=== PATIENT | male | born 1935 | race Caucasian/White ===

== ENCOUNTER 2016-04-26 09:08 | Emergency (ER) | payer MEDICARE, MEDICAID ==
[~2016-04-26 09:08] MED LIST: ARICEPT10 MG PO; ASPIRIN E.C. 8181 MG PO; DIOVAN80 MG PO; MULTIPLE VITAMI1 CAP PO; NAMENDA 10MG TA10 MG PO; OMEPRAZOLE20 MG PO; PROPRANOLOL10 MG PO; SIMVASTATIN10 MG PO
[2016-04-26 09:10] VITALS: TEMP 98.4
[2016-04-26] MEDS ORDERED: COZAAR 50MG50 MG/TAB PO (09:36)
[2016-04-26] MEDS ORDERED: PEPCID 20MG TAB20 MG PO (09:37)
[2016-04-26] MEDS ORDERED: ZOCOR 40MG40 MG PO (09:37)
[2016-04-26] MEDS ORDERED: FLOMAX 0.40.4 MG/CAP PO (09:38)
[2016-04-26 10:28] LABS: BASO % 0.3 % (0.0-2.0); EOS # 0.3 (0.0-0.7); EOS % 3.4 % (0-4.0); GRAN # 5.3 (1.4-6.5); GRAN % 66.9 % (42.2-75.2); HEMATOCRIT 44.9 % (42.0-52.0); HEMOGLOBIN 14.3 g/dl (13.5-18.0); LYMPH # 1.7 (1.2-3.4); LYMPH % 21.5 % (20.0-51.0); MEAN CELL VOLUME 94 fl (80.0-100.0); MEAN CORPUSCULAR HEMOGLOBIN 30 pg (27.0-31.0); MEAN CORPUSCULAR HGB CONC 32 g/dl (33.0-37.0); MEAN PLATELET VOLUME 11.7 fl (7.4-10.4); MONO # 0.6 (0.1-0.6); MONO % 7.5 % (1.7-9.3); PLATELET COUNT 163 K/mm3 (130-400); RED BLOOD COUNT 4.78 M/mm3 (4.20-5.60); WHITE BLOOD COUNT 7.9 K/mm3 (4.8-10.8)
[2016-04-26 10:43] LABS: ADJUSTED CALCIUM 9.4 mg/dL (8.4-10.2); ALANINE AMINOTRANSFERASE 24 U/L (21-72); ALKALINE PHOSPHATASE 94 U/L (50-136); ANION GAP 13 mmol/L (7-16); BILIRUBIN,TOTAL 1.6 mg/dL (0.0-1.0); BLOOD UREA NITROGEN 17 mg/dL (9-20); CALCIUM 9.4 mg/dL (8.4-10.2); CARBON DIOXIDE 28 mmol/L (22-30); CHLORIDE 109 mmol/L (98-107); CREATININE, serum 0.97 mg/dL (0.66-1.25); GLUCOSE 91 mg/dL (74-106); POTASSIUM 3.6 mmol/L (3.4-5.0); SODIUM 150 mmol/L (137-145); TOTAL PROTEIN 7.9 gm/dL (6.4-8.2)
[2016-04-26 11:04] LABS: TROPONIN-I < 0.012 ng/mL (0.000-0.034)
[2016-04-26 12:56] VITALS: BP 141/82; PULSE 62
== END 2016-04-26 12:22 ==
LOC: COL.ER 09:08
PROVIDERS: Physician Assistant
DX: F03.91 Unspecified dementia, unspecified severity, with behavioral disturbance (principal); I10 Essential (primary) hypertension; Z66 Do not resuscitate; Z95.5 Presence of coronary angioplasty implant and graft

== ENCOUNTER 2016-07-19 12:52 | Inpatient (IN) | payer MEDICARE, MEDICAID ==
[~2016-07-19] VITALS: Ht 170.2 cm; Wt 67.9 kg
[~2016-07-19 12:52] MED LIST changes: +COZAAR 50MG50 MG/TAB PO; +FLOMAX 0.40.4 MG/CAP PO; +PEPCID 20MG TAB20 MG PO; +ZOCOR 40MG40 MG PO
[2016-07-19] MEDS ORDERED: ARICEPT10 MG PO (13:40)
[2016-07-19] MEDS ORDERED: ASPIRIN E.C. 8181 MG PO (13:41)
[2016-07-19] MEDS ORDERED: COZAAR 50MG50 MG/TAB PO (13:41)
[2016-07-19] MEDS ORDERED: PEPCID 20MG TAB20 MG PO (13:44)
[2016-07-19] MEDS ORDERED: ZOCOR 40MG40 MG PO (13:45)
[2016-07-19] MEDS ORDERED: SEROQUEL 2525 MG/TAB PO (13:49)
[2016-07-19] MEDS ORDERED: FLOMAX 0.40.4 MG/CAP PO (13:49)
[2016-07-19] MEDS ORDERED: NAMENDA 10MG TA10 MG PO (13:50)
[2016-07-19 14:04] LABS: BASO % 0.4 % (0.0-2.0); EOS # 0.1 (0.0-0.7); EOS % 0.7 % (0-4.0); GRAN # 8.8 (1.4-6.5); GRAN % 78.1 % (42.2-75.2); HEMATOCRIT 51.7 % (42.0-52.0); HEMOGLOBIN 16.1 g/dl (13.5-18.0); LYMPH # 1.5 (1.2-3.4); LYMPH % 13.5 % (20.0-51.0); MEAN CELL VOLUME 97 fl (80.0-100.0); MEAN CORPUSCULAR HEMOGLOBIN 30 pg (27.0-31.0); MEAN CORPUSCULAR HGB CONC 31 g/dl (33.0-37.0); MEAN PLATELET VOLUME 13.8 fl (7.4-10.4); MONO # 0.7 (0.1-0.6); MONO % 6.3 % (1.7-9.3); PLATELET COUNT 138 K/mm3 (130-400); RED BLOOD COUNT 5.33 M/mm3 (4.20-5.60); WHITE BLOOD COUNT 11.2 K/mm3 (4.8-10.8)
[2016-07-19 14:05] LABS: ADJUSTED CALCIUM 9.4 mg/dL (8.4-10.2); ALANINE AMINOTRANSFERASE 27 U/L (21-72); ALBUMIN 4.1 gm/dL (3.5-5.0); ALKALINE PHOSPHATASE 106 U/L (50-136); ANION GAP 20 mmol/L (7-16); BILIRUBIN,TOTAL 1.8 mg/dL (0.0-1.0); BLOOD UREA NITROGEN 45 mg/dL (9-20); CALCIUM 9.5 mg/dL (8.4-10.2); CARBON DIOXIDE 26 mmol/L (22-30); CHLORIDE 114 mmol/L (98-107); CREATININE, serum 1.88 mg/dL (0.66-1.25); GLUCOSE 126 mg/dL (74-106); POTASSIUM 3.6 mmol/L (3.4-5.0); SODIUM 160 mmol/L (137-145); TOTAL PROTEIN 7.9 gm/dL (6.4-8.2)
[2016-07-19 14:13] LABS: B-TYPE NATRIURETIC PEPTIDE 143 pg/mL (0-450)
[2016-07-19 14:18] LABS: TROPONIN-I < 0.012 ng/mL (0.000-0.034)
[2016-07-19 14:41] LABS: HYALINE CAST >12 /lpf; PH 5 (5-8); SQUAMOUS EPITHELIAL 0-2 /hpf; URINE APPEARANCE Hazy; URINE BACTERIA None Seen /hpf; URINE BILIRUBIN Negative (NEGATIVE); URINE BLOOD 1+ (NEGATIVE); URINE COLOR Yellow; URINE GLUCOSE Negative (NEGATIVE); URINE KETONE 1+ (NEGATIVE)
[2016-07-19 17:57] VITALS: BP 130/77; PULSE 81; TEMP 97.9
[2016-07-19 19:19] LABS: ALLEN TEST YES; ALLENS TEST RESULT PASS; ARTERIAL BLD GAS O2 SATURATION 94.9 % (92-100); ARTERIAL BLD GAS TCO2 CT 22.3; ARTERIAL BLOOD GAS BASE EXCESS -3.4 (-2-2); ARTERIAL BLOOD GAS HCO3 21.2 meq/L (22-26); ARTERIAL BLOOD GAS PO2 77.3 mmHg (80-100); ARTERIAL BLOOD GAS pH 7.38 (7.35-7.45); ATS? YES
[2016-07-19 20:00] VITALS: BP 118/64; PULSE 82; TEMP 98.2
[2016-07-20] VITALS: BP 122/68; PULSE 80; TEMP 98
[2016-07-20 04:00] VITALS: BP 104/85; PULSE 84; TEMP 97.4
[2016-07-20 05:44] LABS: CALCIUM 8.8 mg/dL (8.4-10.2); CREATININE, serum 1.37 mg/dL (0.66-1.25); POTASSIUM 3.2 mmol/L (3.4-5.0)
[2016-07-20 07:30] VITALS: BP 93/70; PULSE 71; TEMP 98.3
[2016-07-20 11:27] VITALS: BP 128/75; PULSE 69; TEMP 98.3
[2016-07-20 15:30] VITALS: BP 144/75; PULSE 65; TEMP 98.4
[2016-07-20] MEDS ORDERED: *Potassium Replaceme MC (16:20)
[2016-07-20 19:23] VITALS: BP 139/74; PULSE 68; TEMP 98
[2016-07-21 00:13] VITALS: BP 115/76; PULSE 77; TEMP 98.3
[2016-07-21 03:02] VITALS: BP 129/88; PULSE 76; TEMP 98.3
[2016-07-21 07:15] LABS: POTASSIUM 3.4 mmol/L (3.4-5.0)
[2016-07-21 08:32] LABS: CREATININE, serum 1.09 mg/dL (0.66-1.25)
[2016-07-21 08:56] VITALS: BP 140/58; PULSE 70
[2016-07-21 15:09] VITALS: BP 140/58; PULSE 70; TEMP 98.3
== END 2016-07-21 15:41 | disposition hospice, inpatient (51) | DRG 641 ==
LOC: COL.ER 12:52 → MEDICAL 14:53 → IMCU 16:03 → MEDICAL 07-20 16:45
PROVIDERS: Emergency Medicine; Family Medicine
PROC: 02HV33Z Insertion of Infusion Device into Superior Vena Cava, Percutaneous Approach (ICD-10-PCS; principal; 2016-07-19)
DX: E86.0 Dehydration (principal); E44.0 Moderate protein-calorie malnutrition; R62.7 Adult failure to thrive; Z66 Do not resuscitate; Z51.5 Encounter for palliative care; F03.90 Unspecified dementia, unspecified severity, without behavioral disturbance, psychotic disturbance, mood disturbance, and anxiety; I25.10 Atherosclerotic heart disease of native coronary artery without angina pectoris; Z95.5 Presence of coronary angioplasty implant and graft
CPT/HCPCS: 99222-AI; 99232-AI; 99238; A4315; C1751; J0696; J2060; J7030